=== PATIENT | female | born 1995 | race Caucasian/White ===

== ENCOUNTER → 2024-12-20 | Outpatient (CLI) | payer OTHER, SELFPAY ==
[2024-12-24 15:07] LABS: Immunoglobulin A 141 mg/dL (87-352); Immunoglobulin E 442 IU/mL (6-495); Immunoglobulin G 1218 mg/dL (586-1602); Immunoglobulin G, Subclass 1 526 mg/dL (248-810); Immunoglobulin G, Subclass 2 411 mg/dL (130-555); Immunoglobulin G, Subclass 3 65 mg/dL (15-102); Immunoglobulin G, Subclass 4 27 mg/dL (2-96); Immunoglobulin M 191 mg/dL (26-217)
== END | disposition home or self-care (01) ==
PROVIDERS: Referring Provider Nurse Practitioner Family; Visit Provider Nurse Practitioner Family
DX: G43.909 Migraine, unspecified, not intractable, without status migrainosus (principal); A69.20 Lyme disease, unspecified; R53.82 Chronic fatigue, unspecified; N39.0 Urinary tract infection, site not specified; M62.81 Muscle weakness (generalized); G90.89 Other disorders of autonomic nervous system
CPT/HCPCS: 36415; 82784; 82785; 82787